=== PATIENT | male | born 1975 | race Two or more races ===

== ENCOUNTER 2022-01-06 22:36 | Emergency (ER) | payer SELFPAY ==
[~2022-01-06] VITALS: Ht 175.3 cm; Wt 79.0 kg
[2022-01-06 22:41] VITALS: BP 136/89
== END 2022-01-07 03:59 | disposition left against medical advice (07) ==
LOC: ER 22:36
DX: Z53.21 Procedure and treatment not carried out due to patient leaving prior to being seen by health care provider (principal)
CPT/HCPCS: Z7610 ×2